=== PATIENT | male | born 1955 | race Caucasian/White ===

== ENCOUNTER → 2020-01-25 11:17 | Outpatient (CLI) | payer MEDICARE, SELFPAY ==
--- NOTE | 2020-01-25 11:28 | XR_ITS ---
PROCEDURE: XR CHEST 2V CLINICAL HISTORY: sob COMPARISON: [id number] w ventricle and grafts from 10/08/2018 FINDINGS: There is cardiomegaly without failure. There has been a prior median sternotomy with a bipolar pacemaker present from the left subclavian approach. There is pleural thickening in the left lower chest. No lobar consolidation or collapse is evident. There is a focal nodular opacity along the posterior hemithorax inferiorly probably on the left. There are no previous exams for comparison to determine if this is acute or chronic. This measures approximately 3 cm. Postsurgical changes lower cervical spine IMPRESSION: Cardiomegaly. Prior CABG. Pleural thickening is present along the lower hemithorax on the left posteriorly age indeterminate. Cannot exclude the possibility of a mass. Follow-up suggested as well as correlation with old exams. Dictated by: Vincent Matos MD 01/25/2020 18:09 Electronically signed by Vincent Matos MD in [facility] 01/25/2020 18:09
== END ==
PROVIDERS: PCP Family Medicine; Visit Provider Internal Medicine
DX: R06.00 Dyspnea, unspecified (principal); R07.9 Chest pain, unspecified
CPT/HCPCS: 71046

== ENCOUNTER → 2020-02-02 12:08 | Outpatient (CLI) | payer MEDICARE, SELFPAY ==
--- NOTE | 2020-02-02 12:21 | NM_ITS ---
APPROVED REPORT Exam: Nuclear Stress Test Indication: CAD, HX MN, CABG, HTN, DM, HYPERLIPIDEMIA,FM. HX., C.P., SOB, PALPITATIONS, FATIGUE Patient Location: Outpatient Stress Tech: Cristal Gan NE Tech:Peyton Haddad, ARRT RT(R)(N) Ht: 6 ft 1 in Wt: 242 lbs HR: 70 bpm BP: 118/73 mmHg BSA: 2.33 m2 BMI: 31.9 History: CAD, HX MN, CABG, HTN, DM, HYPERLIPIDEMIA,FM. HX., C.P., SOB, PALPITATIONS, FATIGUE Procedure: Patient received a 0.4 mg of intravenous Lexiscan, resting heart rate 70 bpm, resting blood pressure 118/73 mmHg, with Lexiscan maximum heart rate achived was 83 bpm which is % of the maximum predicted heart rate and blood pressure was 122/77 mmHg. With Lexiscan, patient denied any complaint of chest pain. Cardiac Stress and Resting SPECT Images: Cardiac Stress and Resting SPECT images were obtained using technetium 99m Myoview 32.9 mCi stress and 10.72 mCi at rest. EF low at 47% with apical dyskinesia Fixed defect in [place] and anterior wall Reversible defect in the inferior wall adjacent to the fixed defect Conclusion: Abnormal EF low at 47% with apical dyskinesia Fixed defect in [place] and anterior wall consistent with prior infarction Reversible defect in the inferior wall towards the apex consistent with jessica infarct ischemia Electronically signed by : Vincent Matos MD 02/03/2020 13:49:07
--- NOTE | 2020-02-02 13:30 | CA_ITS ---
APPROVED REPORT Exam: Pharmacologic Technologist: TORRIE MAURICIO, Ht: 6 ft 1 in Wt: 242 lbs BSA: 2.33 m2 HR: 70 bpm BP: 118/73 mmHg Indications: SOA, CP Medical History Medications: Amlodipine,,,,, Lisinopril,,,,, Asa,,,,, Metformin,,,,, Trazadone,,,,, Lasix,,,,, CloPIdogrel,,,,, BisOPROLOL,,,,, Nitro,,,,, RoSUVASTATIN,,,,, Stress Test Details Test: LEXISCAN Reason for pharmacologic stress test: physical limitation. HR Resting HR: 70 bpm Max Heart Rate (APMHR): 158 bpm Max HR Achieved: 83 bpm Target HR (85% APMHR): 134 bpm % of APMHR: 52 Recovery HR: 70 bpm BP Resting BP: 118/73 mmHg Max BP: 122/77 mmHg Recovery BP: 122.0/77.0 mmHg ECG Clinical Reason for Termination: Completed protocol Exercise duration: 04:01 min Highest Stage Achieved: Stress ECG Conclusion Symptoms - SOA, lightheaded, malaise, Mild stomach discomfort, no chest pain. No ectopy. No ST-T changes. Conclusions - Unremarkable Lexiscan stress. Myoview images reported separately. Electronically signed by : Mark Mauricio, 02/06/2020 09:45:10
--- NOTE | 2020-02-02 13:56 | HMH.ITSHM ---
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 [] trazodone spironolactone nitro amlodipine bisoprolol
== END ==
PROVIDERS: PCP Family Medicine; Visit Provider Internal Medicine
DX: I25.118 Atherosclerotic heart disease of native coronary artery with other forms of angina pectoris (principal); R06.02 Shortness of breath; R07.9 Chest pain, unspecified; R53.83 Other fatigue; I11.9 Hypertensive heart disease without heart failure
CPT/HCPCS: 78452; 93017; 93306; A9502; J2785

== ENCOUNTER → 2021-08-27 11:03 | Outpatient (CLI) | payer MEDICARE, SELFPAY ==
--- NOTE | 2021-08-27 | CA_ITS ---
APPROVED REPORT Exam: Pharmacologic Technologist: Yamilex Naranjo Ht: 6 ft 1 in Wt: 239 lbs BSA: 2.32 m2 HR: 70 bpm BP: 111/72 mmHg Indications: Chest pain, Shortness of Breath, CAD Medical History Medications: Amlodipine,,,,, Lisinopril,,,,, Aspirin,,,,, Metformin,,,,, Pantoprazole,,,,, Citalopram,,,,, SyMBICORT,,,,, CloPIdogrel,,,,, FeNOfibrate,,,,, BisOPROLOL,,,,, Nitroglycerin,,,,, SpirOnolactone,,,,, Stress Test Details Test: LEXISCAN HR Resting HR: 70 bpm Max Heart Rate (APMHR): 156.356682 bpm Max HR Achieved: 83 bpm Target HR (85% APMHR): 132.493048 bpm % of APMHR: 53.21 Recovery HR: 75 bpm BP Resting BP: 111.0/72.0 mmHg Max BP: 124.0/76.0 mmHg Recovery BP: 122.0/74.0 mmHg ECG Resting ECG: Normal sinus rhythm, rightward axis Clinical Exercise duration: 04:00 min Highest Stage Achieved: Stress ECG Conclusion Symptoms: Shortness of air, malaise, swimmy headed. No chest pain. Arrhythmias/Ectopy: Occasional PAC, rare PVC ST-T Changes: 0.5-1mm horizontal ST depression inferiorly and 0.5 mm laterally. Conclusion: Non-diagnostic Lexiscan stress. Myoview images reported separately. Test Summary RECOVERY 03:17 . . 70 . 122/ 74 . . REST 03:06 . . 70 . 111/ 72 . . Stage 1 . . . . . . . Myoview Injected Stage 1 01:00 . . 78 . . . . Stage 2 01:00 . . 76 . 101/ 59 . . Stage 3 01:00 . . 70 . 124/ 76 . . Stage 4 01:00 . . 74 . 117/ 73 . Stop exercise at 04:00 RECOVERY 01:00 . . 72 . . . . RECOVERY 02:00 . . 72 . 123/ 79 . . RECOVERY 03:00 . . 75 . 122/ 74 . . RECOVERY 03:17 . . 70 . 122/ 74 . . Electronically signed by : Mehran Camarena MD 08/27/2021 22:26:26
--- NOTE | 2021-08-27 11:04 | CA_ITS ---
APPROVED REPORT EXAM: Comprehensive 2D, Doppler, and color-flow Echocardiogram Credit Operations Specialist: Jaylene Carnes RT(R) Ht: 6 ft 1 in Wt: 240lbs BSA: 2.33 BP: 137/77 mmHg Indications: CP, SOB, CAD, preop clearance for colonoscopy, HTN, hyperlipidemia, DM, pacemaker Echo Enhancing Agent Indication: Endocardial border delineation Agent(s) / Amount(s) Used: Definity 2 cc 2D Dimensions LVOT 2.08 cm (M/F) 1.5-2.5 LA Volume 76.70 mL LA Volume Index 33.06 mL/m2 (M/F) 16-34 M-Mode Dimensions RVDd 2.85 cm (0.9-2.6) LA Diam 4.66 cm (1.9-4.0) LVDd 4.07 cm (3.5-5.7) Ao Diam 3.15 cm (2.0-3.7) LVDs 3.08 cm (3.5-5.7) IVSd 0.93 cm (0.6-1.1) PWd 1.26 cm (0.6-1.1) EF (Teich) 48.80% FS 24.30% EDV (Teich) 72.90 mL ESV (Teich) 37.30 mL LV Diastology E Decel Time 220.00 (160-240 msec) E/A Ratio 0.6 MED E' 7.00 (< 7 cm/sec) E'/MED E' Ratio 7.53 (>14) LAT E' 7.70 (<10 cm/sec) E/LAT E' Ratio 6.84 (>14) Mitral Valve MV E Max Mervin. 53.00 (40-130 cm/s) MV A Velocity 90.00 (40-130 cm/s) E/A Ratio 0.58 MV Decel. Time 220.00 (160-240 ms) MV PHT 64.00 ms Left Ventricle Left atrium is mildly enlarged, left ventricle is normal size, mild concentric left ventricular hypertrophy, visually estimated ejection fraction 40%, there is marked hypokinesis involving mid to distal septum and anterior apical wall. There is no left ventricular thrombus seen, Definity contrast was utilized to delineate the endocardial surfaces, grade 1 diastolic dysfunction seen without tissue Doppler evidence of raise left atrial pressure. Right Ventricle Right atrium and right ventricle are normal size and contractility, there is pacemaker lead seen in the right ventricle. Aortic Valve Aortic valve is minimally thickened and calcified without Doppler evidence of aortic stenosis or aortic insufficiency. Mitral Valve Mitral valve grossly normal, there is mild mitral regurgitation. Tricuspid Valve Tricuspid valve grossly normal, there is mild tricuspid regurgitation, tricuspid regurgitation jet velocity is inadequate for calculation of the right ventricular systolic pressure. Pulmonic Valve Pulmonic valve is poorly visualized. Great Vessels Aortic root is normal size. Inferior vena cava is poorly visualized. Pericardium No significant pericardial effusion noted. Conclusion 1. Mildly enlarged left atrium, normal left ventricular size, mild concentric left ventricular hypertrophy, visually estimated ejection fraction 40% with multiple segmental wall motion abnormality described above, grade 1 diastolic dysfunction seen without tissue Doppler evidence of raise left atrial pressure. Definity contrast was utilized to delineate the endocardial surfaces, there is no left ventricular thrombus seen. 2. Mild mitral and tricuspid regurgitation. 3. No significant pericardial effusion noted. Electronically signed by : Mehran Camarena MD 08/27/2021 22:19:04
--- NOTE | 2021-08-27 11:48 | NM_ITS ---
APPROVED REPORT Exam: Nuclear Stress Test Indication: chest pain..short of breath..palpitations..syncope..fatigue..cabg Patient Location: Outpatient Stress Tech: Yamilex Naranjo [place] Tech:Peyton Haddad MARLEY RT(R)(N) Ht: 6 ft 1 in Wt: 240 lbs HR: 70 bpm BP: 111/72 mmHg BSA: 2.33 m2 BMI: 31.6 History: chest pain..short of breath..palpitations..syncope..fatigue..cabg Procedure: Patient received a 0.4 mg of intravenous Lexiscan, resting heart rate 70 bpm, resting blood pressure 111/72 mmHg, with Lexiscan maximum heart rate achived was 71 bpm which is Less than 85 % of the maximum predicted heart rate and blood pressure was 124/76 mmHg. With Lexiscan, patient denied any complaint of chest pain. Electrocardiogram Resting electrocardiogram showed sinus rhythm, with Lexiscan there is less than 1.[address] segment depression noted from the baseline EKG. The EKG portion of the Lexiscan is nondiagnostic. Cardiac Stress and Resting SPECT Images: Cardiac Stress and Resting SPECT images were obtained using technetium 99m Myoview 32.5 mCi stress and 10.99 mCi at rest. Gated SPECT for analysis of segmental wall motion and calculation of the ejection fraction also done. Prone images were also obtained. Cardiac stress and rest SPECT images show partial reversible defect involving the anterior and anterior apical wall, consistent with mixed ischemia and scar, computer derived ejection fraction 43% with moderate anterior wall hypokinesis, there is transient ischemic dilatation of the left ventricle seen. Conclusion: 1. The EKG portion of the Lexiscan is nondiagnostic. 2. Scintigraphic evidence of mixed ischemia and scar involving the anterior and anterior apical wall, computer derived ejection fraction is 43% with segmental wall motion abnormality described above, there is transient ischemic dilatation of the left ventricle also seen. 3. Abnormal Lexiscan Myoview study. Electronically signed by : Mehran Camarena MD 08/27/2021 22:36:08
== END ==
PROVIDERS: PCP Family Medicine; Visit Provider Nurse Practitioner Family
DX: R06.02 Shortness of breath; I25.118 Atherosclerotic heart disease of native coronary artery with other forms of angina pectoris; I42.9 Cardiomyopathy, unspecified; I48.0 Paroxysmal atrial fibrillation; R94.31 Abnormal electrocardiogram [ECG] [EKG]; I11.9 Hypertensive heart disease without heart failure; E11.9 Type 2 diabetes mellitus without complications; E78.2 Mixed hyperlipidemia; J44.9 Chronic obstructive pulmonary disease, unspecified; Z87.891 Personal history of nicotine dependence; Z95.0 Presence of cardiac pacemaker; Z79.84 Long term (current) use of oral hypoglycemic drugs
CPT/HCPCS: 78452; 93017; 93306; A9502; J2785; Q9957

== ENCOUNTER → 2022-09-15 09:40 | Outpatient (CLI) | payer MEDICARE, SELFPAY ==
[2022-09-15 10:14] LABS: Basophils # 0.1 K/mm3 (0-0.2); Eosinophils # 0.2 K/mm3 (0.0-0.4); Eosinophils % 2.6 % (0.1-12.0); Hematocrit 40.4 % (42.0-52.0); Hemoglobin 12.9 g/dL (14.1-18.0); Lymphocytes # 1.6 K/mm3 (0.7-4.5); Lymphocytes % 20.5 % (10-50); Mean Corpuscular HGB Conc 31.9 g/dL (31.8-35.4); Mean Corpuscular Hemoglobin 27.6 pg (27.0-31.2); Mean Corpuscular Volume 86.4 fl (80-94); Mean Platelet Volume 9.4 fl (7.4-10.4); Monocytes # 0.6 K/mm3 (0.1-1.0); Monocytes % 7.7 % (1.7-9.3); Neutrophils # 5.4 K/mm3 (1.8-7.8); Neutrophils % 68.2 % (37.0-80.0); Platelet Count 287 K/mm3 (142-424); Red Blood Count 4.68 M/mm3 (4.60-6.20); Red Cell Distribution Width 15.7 % (11.5-17.5); White Blood Count 7.9 K/mm3 (4.8-10.8)
[2022-09-15 10:44] LABS: Chloride 99 mmol/L (98-107); Sodium 139 mmol/L (136-145)
[2022-09-15 10:45] LABS: Potassium 4.3 mmoL/L (3.5-5.1)
[2022-09-15 10:47] LABS: Alanine Aminotransferase 16 U/L (12-78); Alkaline Phosphatase 51 U/L (38-126); Anion Gap 12.3 mEq/L (5-15); Aspartate Amino Transferase 24 U/L (17-59); Bilirubin,Direct 0.1 mg/dl (0.0-0.4); Bilirubin,Indirect 0.1 mg/dL (0.0-0.9); Bilirubin,Total 0.2 mg/dl (0.2-1.3); Bilirubin,Unconjugated 0.1 mg/dL (0.0-1.1); Blood Urea Nitrogen 13 mg/dl (9-20); Carbon Dioxide 32 mmol/L (22.0-30.0); Cholesterol 149 mg/dl (140-200); Estimated Glomerular Filt Rate 97 ml/min (>60); GFR (African American) 117 ML/MIN (>60); Triglycerides 244 mg/dl (30-150); VLDL Cholesterol 49 mg/dL (0-40)
[2022-09-15 10:48] LABS: Albumin Level 4.1 g/dl (3.5-5.0); Chol/HDL Ratio 3.3 (1-3.5); Glucose 135 mg/dl (74-100); HDL Cholesterol 45 mg/dl (40-60); Magnesium 1.4 mg/dl (1.6-2.3); Total Protein,Serum 6.6 g/dl (6.3-8.2)
[2022-09-15 10:59] LABS: Direct LDL Cholesterol 63.66 mg/dL (100-129)
[2022-09-15 11:05] LABS: Free T4 (Free Thyroxine) 1.09 ng/dl (0.78-2.19)
[2022-09-15 11:18] LABS: Thyroid Stimulating Hormone 1.12 uIU/mL (0.465-4.68)
== END ==
PROVIDERS: PCP Family Medicine; Visit Provider Nurse Practitioner
DX: E11.9 Type 2 diabetes mellitus without complications (principal); E78.2 Mixed hyperlipidemia; I11.0 Hypertensive heart disease with heart failure; I42.9 Cardiomyopathy, unspecified; I48.0 Paroxysmal atrial fibrillation; I50.32 Chronic diastolic (congestive) heart failure; R06.00 Dyspnea, unspecified; R06.01 Orthopnea; R06.02 Shortness of breath; Z95.0 Presence of cardiac pacemaker; I20.8 Other forms of angina pectoris; Z79.84 Long term (current) use of oral hypoglycemic drugs
CPT/HCPCS: 36415; 80048; 80061; 80076; 83735; 84439; 84443; 85025

== ENCOUNTER 2022-09-18 09:04 | Day surgery (SDC) | payer MEDICARE, SELFPAY ==
[2022-09-18] VITALS (20 sets, daily range): BP systolic 104–138; BP diastolic 60–81; PULSE 60–73; RESP 18; O2SAT 92–98; BMI 29.0
--- NOTE | 2022-09-18 | IR_ITS ---
APPROVED REPORT Patient Location: Outpatient Information Technology Technician: MARLEY Villegas RT (R) PROCEDURES Left heart catheterization Left ventriculogram Selective coronary angiogram Left internal mammary angiography Selective engagement of saphenous vein graft to the diagonal artery INDICATION Coronary artery disease, Abnormal Myoview, History of coronary bypass surgery, Angina pectoris, Informed consent was obtained prior to the procedure. COMPLICATIONS None Estimated Blood Loss: Less than 10 mls TECHNIQUE One percent lidocaine used to anesthetize the right groin. The right femoral artery was accessed via the Seldinger technique and a 5 [place] sheath was placed in the right femoral artery. A JL 4, JR4 catheter were used to perform left heart catheterization, left ventriculogram selective coronary angiography as well as selective engagement of the 1 vein graft and nonselective engagement of the left internal mammary artery. At the end of the procedure the patient was transferred to the postop holding area in stable condition for sheath removal. ANGIOGRAPHIC RESULTS The left main artery Has an ostial smooth 30 to 40% stenosis with a diameter of the left main artery being equal in size to the proximal circumflex artery The left anterior descending artery Has a proximal concentric 90% stenosis and is then occluded after a first diagonal artery which has competitive flow. The circumflex artery Is a nondominant vessel and has mild 10% luminal irregularities in the proximal second obtuse marginal artery The right coronary artery Is a large dominant vessel and has mild proximal 10% luminal regularities with mid vessel long tubular 20% nonflow limiting stenosis The BHATT ventriculogram reveals Dilated ventricle ejection fraction 40 to 45% The left ventricular end-diastolic pressure 10 mmHg CUEN[place] is patent to the LAD. There is a large intercostal branch which originates in the proximal CU[place] graft. There is still excellent inline flow to the [place] Saphenous vein graft to the diagonal arteries widely patent IMPRESSION Coronary artery disease as described above Reduced ejection fraction Normal left ventricular end-diastolic pressure PLAN 1. Continue medical management with aggressive risk factor modification Electronically signed by : Mark Mauricio MD 09/18/2022 10:28:19
== END 2022-09-18 13:40 | disposition home or self-care (01) ==
LOC: CATHLAB 09:06
PROVIDERS: PCP Family Medicine; Visit Provider Internal Medicine
DX: I25.118 Atherosclerotic heart disease of native coronary artery with other forms of angina pectoris (principal); Z95.1 Presence of aortocoronary bypass graft; R07.9 Chest pain, unspecified; E11.9 Type 2 diabetes mellitus without complications; I42.9 Cardiomyopathy, unspecified; I50.32 Chronic diastolic (congestive) heart failure; I11.0 Hypertensive heart disease with heart failure; I48.0 Paroxysmal atrial fibrillation; Z95.0 Presence of cardiac pacemaker; Z79.899 Other long term (current) drug therapy
CPT/HCPCS: 93459; 99152; C1725; C1769; C1894; J1644; Q9967

== ENCOUNTER → 2023-08-10 11:59 | Outpatient (CLI) | payer MEDICARE, SELFPAY ==
[2023-08-10 12:08] LABS: Microscopic, Urine URINE MICROSCOPIC (MICROSCOPIC)
--- NOTE | 2023-08-10 12:28 | XR_ITS ---
FINAL REPORT CLINICAL HISTORY: right hip pain/weight loss FINDINGS: RIGHT HIP Two views of the right hip demonstrate no acute fracture or dislocation. Patient is status post total hip prosthesis. The visualized bony structures are well aligned. No soft tissue abnormality is seen. IMPRESSION: No acute bony abnormality. Reviewed, Interpreted and Dictated by Haresh Romero MD Transcribed by Conchis Pina Authenticated and [facility]
--- NOTE | 2023-08-10 12:29 | XR_ITS ---
FINAL REPORT CLINICAL HISTORY: weight loss/ COMPARISON: 01/25/2020 FINDINGS: TWO-VIEW CHEST There is mild cardiomegaly. The patient is status post median sternotomy. Pacer is identified. There is pleural and parenchymal scarring in the left costophrenic angle. There is no pneumothorax. IMPRESSION: Stable pleural and parenchymal scarring in the left costophrenic angle. Reviewed, Interpreted and Dictated by Haresh Romero MD Transcribed by Lorin Jordan Authenticated and [facility]
[2023-08-10 12:32] LABS: Appearance,Urine CLEAR (Clear); Blood, Urine Negative (Negative); Color,Urine YELLOW (Yellow); Glucose,Urine (UA) Negative (Negative); Ketones,Urine TRACE (Negative); Leukocyte Esterase,Urine Negative (Negative); Nitrate,Urine POSITIVE (Negative); PH,Urine 5.5 (5.0-8.5); Protein,Urine 1+ (Negative); Specific Gravity, Urine >= 1.030 (1.005-1.030); Urobilinogen,Urine 0.2 EU/dl (0.2)
[2023-08-10 12:37] LABS: Basophils % 0.5 % (0.1-2.0); Eosinophils # 0.1 K/mm3 (0.0-0.4); Eosinophils % 1.4 % (0.1-12.0); Hematocrit 41.3 % (42.0-52.0); Hemoglobin 12.8 g/dL (14.1-18.0); Lymphocytes # 2.1 K/mm3 (0.7-4.5); Mean Corpuscular HGB Conc 30.9 g/dL (31.8-35.4); Mean Corpuscular Hemoglobin 24.5 pg (27.0-31.2); Mean Corpuscular Volume 79.3 fl (80-94); Monocytes # 0.8 K/mm3 (0.1-1.0); Monocytes % 8.1 % (1.7-9.3); Neutrophils # 6.5 K/mm3 (1.8-7.8); Neutrophils % 68.1 % (37.0-80.0); Platelet Count 332 K/mm3 (142-424); Red Blood Count 5.21 M/mm3 (4.60-6.20); White Blood Count 9.6 K/mm3 (4.8-10.8)
[2023-08-10 12:41] LABS: Bilirubin,Urine Negative (Negative)
[2023-08-10 12:48] LABS: Bacteria,Urine 1+ /lpf; RBC,Urine Occasional #/hpf (0-3); Squamous Epithelial Cell,Urine Occasional #/hpf (0-5)
[2023-08-10 13:20] LABS: Chloride 100 mmol/L (98-107); Potassium 3.9 mmoL/L (3.5-5.1); Sodium 138 mmol/L (136-145)
[2023-08-10 13:22] LABS: Alanine Aminotransferase 17 U/L (12-78); Amylase 53 U/L (30-110); Aspartate Amino Transferase 23 U/L (17-59); Blood Urea Nitrogen 17 mg/dl (9-20); Estimated Glomerular Filt Rate 67 ml/min (>60); GFR (African American) 81 ML/MIN (>60)
[2023-08-10 13:23] LABS: Albumin Level 4.2 g/dl (3.5-5.0); Alkaline Phosphatase 61 U/L (38-126); Anion Gap 13.9 mEq/L (5-15); Bilirubin,Direct 0.3 mg/dl (0.0-0.4); Bilirubin,Total 0.3 mg/dl (0.2-1.3); Calcium 9.4 mg/dl (8.4-10.2); Carbon Dioxide 28 mmol/L (22.0-30.0); Glucose 75 mg/dl (74-100); HDL Cholesterol 37 mg/dl (40-60); Lipase 76 U/L (23-300); Magnesium 1.5 mg/dl (1.6-2.3); Total Protein,Serum 7.1 g/dl (6.3-8.2); Triglycerides 272 mg/dl (30-150); VLDL Cholesterol 54 mg/dL (0-40)
[2023-08-10 13:24] LABS: Chol/HDL Ratio 4.1 (1-3.5); Cholesterol 153 mg/dl (140-200)
[2023-08-10 13:34] LABS: Direct LDL Cholesterol 67.48 mg/dL (100-129)
[2023-08-10 13:36] LABS: Free T4 (Free Thyroxine) 1.36 ng/dl (0.78-2.19)
[2023-08-10 14:10] LABS: Thyroid Stimulating Hormone 1.43 uIU/mL (0.465-4.68)
== END ==
PROVIDERS: PCP Family Medicine; Visit Provider Internal Medicine
DX: I11.9 Hypertensive heart disease without heart failure; R63.4 Abnormal weight loss; Z68.25 Body mass index [BMI] 25.0-25.9, adult; R06.00 Dyspnea, unspecified; R94.31 Abnormal electrocardiogram [ECG] [EKG]; I42.8 Other cardiomyopathies; I25.10 Atherosclerotic heart disease of native coronary artery without angina pectoris; R10.9 Unspecified abdominal pain; E78.5 Hyperlipidemia, unspecified; M25.551 Pain in right hip; Z12.5 Encounter for screening for malignant neoplasm of prostate
CPT/HCPCS: 36415; 71046; 73502; 80048; 80061; 80076; 81001; 82150; 83690; 83735; 84439; 84443; 85025; G0103

== ENCOUNTER → 2023-08-19 08:21 | Outpatient (CLI) | payer MEDICARE, SELFPAY ==
--- NOTE | 2023-08-19 08:21 | NM_ITS ---
FINAL REPORT CLINICAL HISTORY: right hip pain/weight loss..no hx of cancer Pt had prior hip xray on 07-10-23 8:30 am 26.1 mci Tc MDP injected into lt ant FINDINGS: 26.1 mci Tc MDP injected with delayed images of the pelvis and bilateral hips. Comparison was made with 08/10/2023. There are photopenic defects from hip arthroplasty hardware. There is otherwise normal uptake within the proximal femurs and pelvis. There are foci of abnormal radiotracer in the posterior lumbar spine on the left at L3 and on the right at L5 which could be degenerative, metastatic disease is less likely. IMPRESSION: No abnormal uptake of the hips. Uptake in the lower lumbar spine which may be degenerative. Recommend correlation with plain radiographs. Reviewed, Interpreted and Dictated by Alayna Pacheco MD Transcribed by Lorin Jordan Authenticated and [facility]
== END ==
LOC: RAD 08:21
PROVIDERS: PCP Family Medicine; Visit Provider Internal Medicine
DX: E78.5 Hyperlipidemia, unspecified (principal); I11.9 Hypertensive heart disease without heart failure; I25.10 Atherosclerotic heart disease of native coronary artery without angina pectoris; I42.8 Other cardiomyopathies; I48.91 Unspecified atrial fibrillation; M25.551 Pain in right hip; R06.00 Dyspnea, unspecified; R63.4 Abnormal weight loss; R94.31 Abnormal electrocardiogram [ECG] [EKG]; Z87.891 Personal history of nicotine dependence; Z95.0 Presence of cardiac pacemaker
CPT/HCPCS: 78300; A9503

== ENCOUNTER → 2023-11-13 09:56 | Outpatient (CLI) | payer MEDICARE, SELFPAY ==
--- NOTE | 2023-11-13 09:57 | CA_ITS ---
APPROVED REPORT EXAM: Comprehensive 2D, Doppler, and color-flow Echocardiogram Rn Night: Amy Britton CRT Ht: 6 ft 1 in Wt: 195lbs BSA: 2.13 BP: 126/77 mmHg Indications: Shortness of Breath, CAD, Pre-Op back surgery on 11/18/23, CABG, CM, HTN, HDL 2D Dimensions Left Atrium 2.99 cm LA Volume 45.80 mL LVOT 2.05 cm (M/F) 1.5-2.5 LA Volume Index 21.50 mL/m2 (M/F) 16-34 EF AP4 44.30 % GL Strain -14.1 % M-Mode Dimensions RVDd 2.51 cm (0.9-2.6) LVDd 6.63 cm (3.5-5.7) Ao Diam 5.57 cm (2.0-3.7) LVDs 5.10 cm (3.5-5.7) IVSd 1.91 cm (0.6-1.1) PWd 0.72 cm (0.6-1.1) EF (Teich) 45.20% FS 23.10% EDV (Teich) 225.90 mL TAPSE 1.58 (<1.7) ESV (Teich) 123.80 mL LV Diastology E Decel Time 325 (160-240 msec) E/A Ratio 0.57 Aortic Valve AoV Peak Mervin. 145.0 (50-130 cm/s) AO Peak GR. 8.50 mmHg Mitral Valve MV E Max Mervin. 43.0 (40-130 cm/s) MV A Velocity 76.0 (40-130 cm/s) E/A Ratio 0.57 MV Decel. Time 325 (160-240 ms) Tricuspid Valve TR P. Velocity 263.00 cm/s RAP Estimate 10.00 mmHg RVSP 37.70 mmHg Left Ventricle The left ventricle is normal size. The endocardial borders are difficult to visualize, but grossly the left ventricular systolic function is mildly reduced. There is increased LV wall thickness. There is mild global hypokinesis present. Transmitral Doppler flow pattern suggests impaired LV relaxation. LVEF is 45%. Right Ventricle The right ventricle is normal size. The right ventricular systolic function is normal. Atria Left atrium is mildly dilated. The right atrium size is normal. Aortic Valve The aortic valve is mildly thickened. There is no aortic valvular stenosis. Trace aortic regurgitation. Mitral Valve The mitral valve leaflets are mildly thickened. No evidence of mitral valve stenosis. Trace mitral regurgitation. Tricuspid Valve The tricuspid valve leaflets are thin and pliable. Trace tricuspid regurgitation. RVSP is 20-25 mmHg. Pulmonic Valve The pulmonary valve is normal in structure. Trace pulmonic regurgitation. Great Vessels The aortic root is normal in size. The ascending aorta is boderline dilated, measuring 3.7 cm in diameter. IVC is normal in size and collapses >50% with inspiration. Pericardium There is no pericardial effusion. Other Information Study Quality: Fair Conclusion Mildly reduced LV systolic function (LVEF 45%). Mild LA dilation. No significant valvular stenosis or regurgitation. Compared to prior study from 08/27/2021, there are overall no significant changes noted. The LV endocardial borders are difficult to visualize, future echo evaluations are recommended to be performed with ultrasound enhancing agent to better visualize LV wall borders and contractility. Electronically signed by : Mitra Nicole MD 11/13/2023 11:25:20
== END ==
LOC: RT 09:57
PROVIDERS: PCP Family Medicine; Visit Provider Internal Medicine
DX: Z01.810 Encounter for preprocedural cardiovascular examination (principal)
CPT/HCPCS: 93306